=== PATIENT | male | born 2000 | race Caucasian/White ===

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

== ENCOUNTER 2022-09-03 19:38 | Emergency (ER) | payer MEDICAID ==
[~2022-09-03] VITALS: Ht 170.8 cm; Wt 57.3 kg
[2022-09-03] MEDS ORDERED: ONDANSETRON 4 MG (ZOFRAN) ORAL DISSOLVE TAB SL STA (20:29)
[2022-09-03] MEDS ORDERED: FAMOTIDINE 20 MG (PEPCID) TABLET PO STA (20:29)
--- NOTE | 2022-09-03 20:29 | ED GI ---
General Stated Complaint: VOMITING History of Present Illness Date Seen by Provider: Sep 03, 2022 Time Seen by Provider: 20:25 Initial Comments 22-year-old male with PMH of GERD is here with complaints of worsening acid reflux and heartburn. Patient went to urgent care today and was given IV fluids and sent home. Patient has been taking pantoprazole for the past 1 year. But in the past few days the heartburn and acid reflux has become worse. Denies fever, diarrhea, shortness of breath, chest pain, dysuria. Allergies and Home Medications Allergies Coded Allergies: oseltamivir (Verified Allergy, Unknown, 10/24/17) Patient Home Medication List Home Medication List Reviewed: Yes Pantoprazole Sodium (Pantoprazole Sodium) 40 Mg Tablet.dr, 40 MG PO DAILY, (Reported) Entered as Reported by: RUDY AVILEZ on 03/13/21 1220 Review of Systems Review of Systems Constitutional: no symptoms reported EENTM: No Symptoms Reported Respiratory: No Symptoms Reported Cardiovascular: No Symptoms Reported Gastrointestinal: See HPI, Nausea Genitourinary: No Symptoms Reported Musculoskeletal: no symptoms reported Skin: no symptoms reported Psychiatric/Neurological: No Symptoms Reported Endocrine: No Symptoms Reported Hematologic/Lymphatic: No Symptoms Reported Past Jogpxub-Ymtejx-Pmmcil Hx Immunizations Up To Date Tetanus Booster (TDap): Less than 5yrs PED Vaccines UTD: Yes Seasonal Allergies Seasonal Allergies: No Past Medical History Surgeries: Yes (RIGHT WRIST SURGERY) Orthopedic Respiratory: Yes Asthma Cardiac: No Neurological: No Genitourinary: No Gastrointestinal: No Musculoskeletal: No Endocrine: No HEENT: No Cancer: No Psychosocial: No Integumentary: No Blood Disorders: No Physical Exam Vital Signs Capillary Refill : Height/Weight/BMI Height: 5'6.00" Weight: 125lbs. oz. [id number]; 36.00 BMI Method:Stated General Appearance: WD/WN, no apparent distress HEENT: PERRL/EOMI Neck: full range of motion Respiratory: chest non-tender, lungs clear, normal breath sounds, no respiratory distress Cardiovascular: regular rate, rhythm Gastrointestinal: normal bowel sounds, soft, tenderness (epigastric tenderness) Extremities: normal range of motion Back: normal inspection, no CVA tenderness Neurologic/Psychiatric: alert, oriented x 3 Skin: normal color Lymphatic: no adenopathy Progress/Results/Core Measures Results/Orders My Orders Orders - SHANIQUA GUERRERO MD Ondansetron Oral Dissolve Tab (Zofran (09/03/22 20:29) Lidocaine 2% Viscous 15 Ml (Xylocaine Vi (09/03/22 20:30) Famotidine Tablet (Pepcid Tablet) (09/03/22 20:29) Antacid Suspension (Mylanta Suspension (09/03/22 20:30) Medications Given in ED Current Medications Medications Dose Ordered Sig/Kirk Route Start Time Stop Time Status Last Admin Dose Admin Al Hydrox/Mg Hydrox/Simethicone 30 ml ONCE ONCE PO 09/03/22 20:30 09/03/22 20:31 DC 09/03/22 20:44 30 ML Lidocaine HCl 15 ml ONCE ONCE PO 09/03/22 20:30 09/03/22 20:31 DC 09/03/22 20:44 15 ML Progress Progress Note : Progress Note 1. ACUTE GERD EXACERBATION: -GI cocktail/Pepcid 20 mg oral/Zofran 4 mg oral given STAT in ER -Advised patient to follow-up with PCP within the next 7 days. Patient will likely need to have H. pylori testing done in clinic. Advised to continue pantoprazole, and take [id number] Pepcid 20 mg once a day, and liquid Maalox as needed for exacerbated heartburn. -The patient was seen in the ED, and treated appropriately to presentation at a specific point in time. Patient is informed that there is a possibility that disease and illness can evolve and change in acuity rapidly or slowly after patient is discharged from the ER. Precautionary advice given to the patient for immediate return to ER if symptoms worsen or do not resolve, and to seek emergency care sooner rather than later. Pt also advised on the importance of PCP follow up and compliance with management and follow up plan with PCP and/or specialist, as this is part of the management plan. Pt verbally expressed understanding. Departure Impression Primary Impression: Chronic GERD Disposition: 01 HOME, SELF-CARE Condition: Improved Departure-Patient Inst. Referrals: PRITESH CAMPOVERDE MD (PCP/Family) Primary Care Physician Patient Instructions: Acid Reflux and GERD in Adults (DC), Acid Reflux and Gastroesophageal Reflux Disease in Adults Add. Discharge Instructions: -Advised patient to follow-up with PCP within the next 7 days. Patient will likely need to have H. pylori testing done in clinic. Advised to continue pantoprazole, and take spsy-tfk-jehwsma Pepcid 20 mg once a day, and liquid Maalox as needed for exacerbated heartburn. Take Zofran as needed for nausea SHANIQUA GUERRERO MD Sep 03, 2022 20:29
[2022-09-03] MEDS ORDERED: LIDOCAINE 2% VISCOUS 15 ML UDC PO ONE (20:30)
[2022-09-03] MEDS ORDERED: ANTACID SUSP 30 ML UDC (MYLANTA) PO ONE (20:30)
[2022-09-03 22:10] VITALS: BP 147/99
== END 2022-09-03 22:12 | disposition home or self-care (01) ==
LOC: EDUNIT# 19:38 → ER FS 19:39
DX: K21.9 Gastro-esophageal reflux disease without esophagitis (principal); Z28.310 Unvaccinated for COVID-19; Z79.899 Other long term (current) drug therapy

== ENCOUNTER → 2023-04-29 | Outpatient (CLI) | payer MEDICAID ==
--- NOTE | 2023-04-29 10:54 | Diagnostic Imaging Report ---
PROCEDURE: MRI left joint lower extremity without contrast. TECHNIQUE: Multiplanar, multisequence non contrast-enhanced MRI of the left lower extremity was accomplished. INDICATION: Knee swelling after injury with a horse. EXAMINATION: Left knee MRI without contrast 04/29/2023 COMPARISON: None. FINDINGS: There is diffuse T2 hyperintensity throughout the medial distal femur which involves the epiphysis and metadiaphysis. There is extension towards portions of the lateral femoral condyle. A focus of mild T2 hyperintensity seen within the mid aspect of the tibial plateau. MCL is intact with minimal edema proximally suggesting a sprain. Lateral collateral ligamentous complex unremarkable. The extensor mechanism is intact. ACL is slightly hyperintense and could be due to a strain or partial tear. No complete discontinuity appreciated. PCL intact. There is abnormal signal intensity throughout the posterior horn of the medial meniscus consistent with a tear. The lateral meniscus is intact. Cartilage in the medial and lateral joint compartments appears preserved. Patellofemoral cartilage is maintained. There is a small joint effusion. IMPRESSION: 1. Diffuse abnormal signal intensity within the femur as described and to a lesser degree in the tibial plateau most likely due to bone contusion. Underlying microfractures not excluded. 2. Tear of the posterior horn of the medial meniscus with the lateral meniscus intact. 3. Mild MCL sprain. Dictated by: Dictated on workstation # [id number]
== END ==
LOC: RAD 08:46
PROVIDERS: ATTEND Student in an Organized Health Care Education/Training Program
DX: S83.242A Other tear of medial meniscus, current injury, left knee, initial encounter (principal); S83.412A Sprain of medial collateral ligament of left knee, initial encounter; M25.462 Effusion, left knee
CPT/HCPCS: 73721